=== PATIENT | male | born 1980 | race Hispanic/Latino ===

== ENCOUNTER 2018-12-29 11:08 | Emergency (ER) | payer OTHER ==
[2018-12-29] MEDS ORDERED: IBUPROFEN 600 MG TABLET ONE (11:48)
== END 2018-12-29 12:09 | disposition home or self-care (01) ==
LOC: EDH 11:08
DX: S83.8X1A Sprain of other specified parts of right knee, initial encounter (principal); I10 Essential (primary) hypertension; Z98.890 Other specified postprocedural states; Z88.0 Allergy status to penicillin; W55.12XA Struck by horse, initial encounter; Y93.89 Activity, other specified; Y92.89 Other specified places as the place of occurrence of the external cause; Y99.0 Civilian activity done for income or pay
CPT/HCPCS: 73562